=== PATIENT | male | born 1940 | race Caucasian/White ===

== ENCOUNTER 2022-06-16 08:35 | Inpatient (IN) | payer MEDICARE, OTHER, SELFPAY ==
[2022-06-09 09:00] VITALS: BMI 24.1
[2022-06-16] VITALS (20 sets, daily range): BP systolic 104–144; BP diastolic 51–77; PULSE 70–87; RESP 12–20; TEMP 36–36.4; O2SAT 89–99; BMI 24.1; BMI 25.1
--- NOTE | 2022-06-16 | DI.RAD.S_ITS ---
PROCEDURE: XR LUMBAR SPINE 2-3V INDICATIONS: L4-5, L5-S1 TLIF TECHNIQUE: Two views of the lumbar spine were acquired. COMPARISON: None. FINDINGS: Bones: Three intraoperative fluoroscopic spot images demonstrate bilateral transpedicular screws at L4, L5, and S1. The hardware is intact. There are disc spacers at L4-5 and L5-S1. Lateral views demonstrate appropriate placement of the L5-S1 spacer which appears oblique on the AP view. Normal L4-5 alignment. Soft tissues: Overlying bowel gas pattern is normal. No suspicious soft tissue calcifications. IMPRESSION: 1. Intraoperative fluoroscopy for L4-5 and L5-S1 TLIF. Dictated by: Maegan Parra M.D. on 06/16/2022 at 14:16 Approved by: Maegan Parra M.D. on 06/16/2022 at 14:19
[2022-06-16] MEDS: LACTATED RINGERS 1,000 ML 42 ML IV ×3 (09:00→15:17)
[2022-06-16] MEDS: ACETAMINOPHEN 325 MG TABLET 975 MG PO (09:01)
[2022-06-16] MEDS: GABAPENTIN 300 MG CAPSULE 900 MG PO (09:16)
[2022-06-16 09:21] LABS: COVID19 -Nasal RAPID Negative (Negative)
[2022-06-16] MEDS: ALBUTEROL/IPRATROPIUM 3 ML AMPUL INH ×3 (10:02→19:15)
--- NOTE | 2022-06-16 10:33 | PM.PREOP ---
Pre-operative Note COVID-19 COVID-19 status: Negative Result date/Date tested (Pos, Neg/Pending): 06/15/22 Criteria for continued procedure: Expected advancement of disease process, Possibility delay results in more complex future surgery or treatment, Increased loss of function, Continuing or worsening of significant or severe pain, Deterioration of the patient's condition or overall health and Delay expected to result in less-positive ultimate med/surg outcome Interval Note History & Physical reviewed/Exam performed by Physician: Yes Changes to H&P: No
[2022-06-16] MEDS: CEFAZOLIN 2 GM/100 ML PREMIX 100 ML IV ×2 (11:41→20:44)
--- NOTE | 2022-06-16 11:55 | SUR.OPER ---
Prone on spine table, head in foam head support, padded chest and pelvic supports, gel pad at knees, lower legs supported by pillows; nipples, genitalia and toes free of pressure, arms secured on foam padded arm boards at <90 degrees abduction. Tape over blanket at thigh secured to table.
[2022-06-16] MEDS: BUPIVACAINE LIPOSOME 266 MG/20 ML VIAL INJ (11:59)
[2022-06-16] MEDS: BUPIVACAINE 0.25% (PF) 30 ML, EPINEPHrine 0.3 MG INJ (11:59)
--- NOTE | 2022-06-16 14:24 | P.OP_ITS ---
Operative Date/Time/Diagnoses Date of procedure: 06/16/22 Time of procedure: 11:30 Pre-op diagnosis: 1. L4-5, L5-S1 spinal stenosis with radiculopathy 2. L4-5, L5-S1 spondylosis with radiculopathy Post-op diagnosis: same Procedure & Clinicians Procedure: 1. L4-5, L5-S1 Postero-lateral and posterior interbody fusion 2. L4-5, L5-S1 interbody cage placement. 3. L4-5, L5-S1 decompressive laminectomy with bilateral facetecomies 4. L4-5, L5-S1 Posterior segmental instrumentation 5. [place] of bone marrow from iliac crest 6. Utilization of microsurgical technique and operating microscope 7. Utilization of robotic assisted navigation Same procedure as scheduled: Yes Indications: Patient has been having chronic back pain and worsening lumbar radiculopathy. Patient failed multiple conservative management with worsening pain weakness and numbness in his lower extremity. Patient has been having difficulty performing activity of daily living. After discussing risks benefits of treatment options, patient elected proceed with surgery. Surgeon: Ynes Gama Machine Long Goods Helper: Lela Polanco Click Yes if Unassisted: No Anesthesia Type: General Operative Notes Closure Type: primary Specimen(s): none sent Prosthetic devices, grafts, tissues, transplants, or devices: Globus CREO MIS screws, Rise cages Applied: catheter Estimated Blood Loss (mL): 50 Blood products transfused: none Procedure in detail: Patient was seen in the preoperative area. Risks and benefits of the surgery was discussed with the patient. Informed consent was obtained from the patient and placed in the chart. Surgical site was marked. Patient was taken to the operative room. General anesthesia was administered. Prophylactic antibiotic was given to the patient less than 30 min before the incision was made. Patient was placed into a prone position on the Haim table. Patient's back was then prepped and draped in the sterile fashion. Time-out was performed at this time. After patient was prepped and draped, patient's PSIS was palpated and marked bilaterally. Small 1 cm incision was made over the PSIS for placement of the reference probes. Two trocar was placed into the PSIS 1 on each side. The reference probe was attached to the trocar of the reference apparatus. At this time the C-arm imaging was used to confirm AP and lateral of L4-L5, L5- S1 vertebrae and merged the C-arm imaging using the [employer] robotic navigation system with the CT of the lumbar spine. After successful merging was completed and confirmed, skin marker was used to donaldo out the skin incision using the [employer] robotic arm. Bilateral incision was made at this time. Pre templated trajectory was used and guided using the [employer] robotic navigation system for bilateral L4, L5, S1 pedicle screw placement. This was done by using the robotic arm to guide the high-speed bur to make a cortical entry point. Next a drill was placed also using the robotic arm and guided using the navigation system drilling partially through bilateral L4, L5 and S1 pedicles. Next L4, L5, S1 pedicle screws it was pre templated and measured was placed onto the power road oiling truck driver and inserted into the pedicles bilaterally. After all 6 screws were placed C-arm imaging was taken of both AP and lateral to confirm the placement. Excellent placement of the screws were confirmed and a matched precisely with the pre planned screw placement using the navigation system. MARs retractor was inserted using [employer] guidence. Globus MARS retractors was placed inside the incision and docked onto the L4 and L5 lamina. Using microsurgical technique and operating microscope, a L4, L5 laminectomy and L4-5, L5-S1 facetectomy was performed using a Kerrison rongeur. Patient was found have severe lateral recess and neural foramen stenosis which was fully decompressed after the laminectomy facetectomy. More than 75% of the facets were removed during the process of decompression rendering L4-5, L5-S1 level grossly unstable and required a fusion procedure at the same time. The disc space at L4-5, L5-S1 was identified, and a total diskectomy was performed at L4- 5, L5-S1 level. The endplates were decorticated using a rasp and shaver. The total diskectomy and decortication was performed at L4-5, L5-S1 level in order to to accomplish a L4-5, L5-S1 fusion. The local bone from the laminectomy and facetectomy was saved for local bone grafting. After the total diskectomy and decortication was completed, Trifecta bone graft material was combined with local bone that was harvested earlier. At this time, a separate skin is incision was made over the iliac crest. A Jamshidi needle was inserted into the iliac crest through a separate skin incision. 5 cc of bone marrow aspiration was obtained through the separate skin incision using a Jamshidi needle from the iliac crest. The bone marrow aspiration was combined with local bone and the Trifecta bone grafting material. The bone grafting material was placed into the L4-5, L5-S1 interbody space along with a expandable cage. The cage was expanded to its maximum height using the torque limiting screwdriver. The disc preparation as well as the cage insertion were also performed under navigation guidance. After the cage was placed, AP and lateral C-arm imaging was taken to confirm placement of the cage and excellent position was confirmed. Globus MARS retractor was inserted and docked onto the L4-5, L5-S1 posterolateral gutter on the right side. Using the power drill, posterior- lateral decortication was performed at L4-5, L5-S1 level until bleeding cortical bone was identified. The remaining bone grafting material was placed into the L4-5, L5-S1 posterior lateral gutter he order to accomplish posterolateral fusion at the L4-5, L5-S1 level. At this time the tulips were attached to the L4, L5, S1 pedicle screw shanks. After measuring the length of the rods, they were inserted into the tulips of the pedicle screws and locked in place using locking caps and torque limiting screwdriver bilaterally. Total 6 caps and 2 titanium rods was used in order to complete the posterior instrumentation construct. After all the hardware was placed, and confirmed with AP and lateral C-arm imaging, the wound was then irrigated with sterile normal saline and packed with Ray-Ebn gauze for 3 min to accomplish hemostasis. After the gauze was removed the deep fascia was closed with #1 Vicryl suture. The subcutaneous layer was closed with 2-0 Vicryl. The skin was closed with skin jose. Patient tolerated the procedure well. There were no complications. Neuro monitoring system was used to monitor patient's neurologic status throughout entire procedure. There was no disturbance of the neural monitoring signals throughout the case. The Operation could not have been safely performed without compromising the technical result or length of the procedure, without the assistance of a skilled director surgical. The director surgical was medically necessary for proper positioning, retraction and manipulation of instruments, proper exposure, surgical preparation, and manipulation of tissue. Complications: none Post-operative Condition: stable Disposition: PACU Plan for aftercare: Admit to inpatient hospital
[2022-06-16] MEDS: HYDROMORPHONE 2 MG INJ IV ×4 (14:43→15:16)
[2022-06-16] MEDS: OXYCODONE IR 5 MG TABLET PO ×2 (15:18→15:52)
[2022-06-16] MEDS: hydrOXYzine pamoate 25 MG CAPSULE PO ×2 (15:18→20:44)
[2022-06-16] MEDS: HYDROMORPHONE 0.5 MG INJ IV (17:21)
[2022-06-16] MEDS: LACTATED RINGERS 1,000 ML 125 ML IV (17:22)
[2022-06-16] MEDS: GABAPENTIN 100 MG CAPSULE PO (20:44)
[2022-06-16] MEDS: GABAPENTIN 400 MG CAPSULE 800 MG PO (20:45)
[2022-06-16] MEDS: SENNOSIDES 8.6 MG TABLET 17.2 MG PO (20:45)
[2022-06-16] MEDS: TAMSULOSIN 0.4 MG CAPSULE PO (20:45)
[2022-06-16] MEDS: DOCUSATE 100 MG CAPSULE PO (20:45)
[2022-06-16] MEDS: ATORVASTATIN 20 MG TABLET PO (20:45)
[2022-06-16] MEDS: OXYCODONE IR 10 MG TABLET PO ×2 (20:45→23:42)
[2022-06-17] VITALS (8 sets, daily range): BP systolic 128–140; BP diastolic 47–63; PULSE 62–84; RESP 17–22; TEMP 36.5–37; O2SAT 93–96
[2022-06-17] MEDS: HYDROMORPHONE 0.5 MG INJ IV ×6 (01:37→23:30)
[2022-06-17] MEDS: LACTATED RINGERS 1,000 ML 125 ML IV (01:38)
[2022-06-17] MEDS: hydrOXYzine pamoate 25 MG CAPSULE PO (04:31)
[2022-06-17] MEDS: CEFAZOLIN 2 GM/100 ML PREMIX 100 ML IV (04:31)
[2022-06-17] MEDS: OXYCODONE IR 10 MG TABLET PO ×5 (04:31→19:57)
[2022-06-17 05:10] LABS: Hematocrit 31.6 % (41-53); Hemoglobin 10.6 g/dL (13.5-17.5)
--- NOTE | 2022-06-17 07:50 | P.PN_ITS ---
Subjective Subjective Date Patient Seen: 06/17/22 Time Patient Seen: 07:50 Interval history: Patient is complaining of moderate to severe low back pain this morning. He has not mobilized yet and is concerned about this and pain management. He is not worked with physical therapy or occupational therapy yet. He still has a catheter in place. He has longstanding neuropathy and takes gabapentin daily. Exam Vital Signs (past 8 hours): - 06/16/22 23:52 06/17/22 00:00 06/17/22 04:00 Temperature 97.7 F 98.4 F Pulse Rate 64 62 Respiratory Rate 17 18 Blood Pressure 128/56 L 140/63 Pulse Oximetry 93 96 94 Oxygen Delivery Method Nasal Cannula Oxygen Flow Rate 3 3 2 Fraction of Inspired Oxygen 32 SaO2/FiO2 Ratio 296 Oxygen Delivery Method Nasal Cannula Oxygen Flow Rate 2 Narrative Exam Narrative: Pleasant 81-year-old male, resting comfortably in bed, no acute distress. Lumbar dressing demonstrates some bloody discharge. No surrounding erythema, induration, or gian pus. Bilateral lower extremity: Motor functions are g rossly intact, sensation is grossly intact to light touch, calves are soft and nontender to palpation. Objective Labs 06/17/22 04:25 Labs: Laboratory Results - last 24 hr 06/16/22 06/17/22 08:45 04:25 Hgb 10.6 L Hct 31.6 L SARS-CoV-2 (PCR) Negative [facility] Medical History Arthritis CAD (coronary artery disease) COPD (chronic obstructive pulmonary disease) Dry skin Emphysema lung Enlarged prostate Hearing impaired History of angina (2001) History of headache HLD (hyperlipidemia) HTN (hypertension) Myocardial infarction (05/2001) Neuropathy Shortness of breath Spinal stenosis Surgical History H/O vasectomy Hx of heart artery stent (05/2001) Hx of tonsillectomy S/P PTCA (percutaneous transluminal coronary angioplasty) Social History household members: spouse Smoking Status: Former smoker alcohol intake: former Assessment & Plan Post-op Postoperative Procedures: Procedures Operation Date: 06/16/22 10:15 Actual Procedure Side Surgeon p L4-5, L5 -S1 TLIF w. posterior instrumentation-robot Ynes Gama MD Postoperative day: 1 Postoperative status: marginal pain control Postoperative status narrative: -stable status post L4-5, L5-S1 TLIF Postoperative plan narrative: -mobilize with Physical therapy/Occupational therapy. Weightbearing as tolerated with front wheel walker or cane. No bending, lifting, twisting x6 weeks -continue with multimodal pain management. I will change Tylenol scheduled encouraged him to stick with p.o. pain medications -DC urinary catheter once mobilizing well -disposition: Home in 1-2 days with family, once cleared by PT/OT Quality VTE Deep Vein Thrombosis/Pulmonary Embolism Present on Admission: No
[2022-06-17] MEDS: GABAPENTIN 400 MG CAPSULE 800 MG PO ×2 (08:37→20:04)
[2022-06-17] MEDS: TAMSULOSIN 0.4 MG CAPSULE PO ×2 (08:37→20:05)
[2022-06-17] MEDS: GABAPENTIN 100 MG CAPSULE PO ×2 (08:37→20:04)
[2022-06-17] MEDS: DOCUSATE 100 MG CAPSULE PO ×2 (08:37→20:04)
[2022-06-17] MEDS: ACETAMINOPHEN 325 MG TABLET 650 MG PO ×3 (08:38→20:32)
[2022-06-17] MEDS: ALBUTEROL/IPRATROPIUM 3 ML AMPUL INH ×2 (08:46→20:14)
--- NOTE | 2022-06-17 09:10 | PC.NURSE ---
Addendum entered by Priscilla Gill R.N. 06/17/22 14:03: Patient given iv dilaudid earlier for discomfort. He is taking a nap and doesnt want to be bothered for a bit. Will give him his tylenol in an hour. Original Note: Assess- Patient is alert and oriented x4. He states that his back pain is 8/10. Patients gabapentin and oxycodone given at 0830 so that he can work with physical therapy at 0900. Dressing is cdi, with small amount of drainage. He ate well at breakfast. CMS wnl and ppx2. Patient does have neuropathy but this is his baseline. Had a breathing tx before physical therapy.
--- NOTE | 2022-06-17 09:11 | CM.DANOTE ---
Addendum entered by Carole Leiva R.N. 06/17/22 15:15: Went back to meet with patient and spouse, Kinjal. Asked patient if he wants home versus skilled rehab. Patient stated, no, I want home, but I don't think that I will be ready to go tomorrow. Let him know that this will depend upon ortho, if he feels that patient is medically stable, and has worked with P.T, likely he may be ready tomorrow. Did bring in Medicare Choice list ipad, and gave spouse the list of home health agencies. She would like to discuss with her children, and can let this DC inventory planner know which agency she chooses tomorrow. Will go ahead and start face to face. Original Note: DCP: Case received, EMR reviewed and met with patient. Introduced self and role. Was able to obtain information regarding patient's baseline activity level at home prior to his surgery. DCP assessment completed with information currently available. Patient is an 81 year old male who admitted yesterday morning to the care of the orthopedic team. PCP: BENEDICTO Bose. Payer: confirmed: Medicare/[employer] Preferred. Patient came to the hospital for a surgical procedure. Patient had L4-5, L5-S1 postero-lateral and posterior interbody fusion. Patient has history of spinal stenosis. Met with patient in his room. He was sitting up in bed, just had his breakfast. Confirmed that he resides in [facility] with his spouse, Mandy. At his baseline, he indicated that he has been driving, does not use any DME, states, it has been hard to get around before his surgery. He also indicated that he has several stairs in the house. Patient indicated that his spouse should be able to help him, but hasn't been up yet, and doesn't know how he will do with the pain. Patient will be working with the therapy team today. P: DCP to follow closely. Will see how he does with P.T, and will follow up with patient again later today, should he need skilled versus home health. Carole Leiva RN/Dye Tub Tender Discharge Planning/Care Management CM Discharge Assessment Start: 06/17/22 09:08 Freq: Status: Active Protocol: Document 06/17/22 09:09 (Rec[facility] 06[facility]17[facility]22 09[facility]11 [id number] Discharge Planning Assessment Assigned Vision Mixer Carole Leiva RN/Dye Tub Tender Advance Directives? Yes Advance Directives on File No History Provided By Patient,Medical Record Prior Living Arrangements House Household Members spouse Type of transporation used prior to Drives own vehicle admit Independent with ADL's Yes Is patient alert and oriented? Yes Caregiver for Another No Comment Has not been up out of bed due to pain, will have to see how he mobilizes with therapy. Transportation Arrangement Spouse, or facility if he needs alf Referrals Initiated Other Additional Comment Have not yet initiated referrals as of yet, will see how he does with therapy. Whiteboard Updated in Patient Room with Yes name and ext. # of Vision Mixer Review Status In Process Next Review Type Continued Stay Review Pre-Anesthesia Assessment Start: 06/09/22 08:37 Freq: Status: Active Protocol: Document 06/09/22 09:00 [facility] (Rec: 06/09/22 09:34 [facility] [id number]) Pre-Anesthesia Assessment Preferred Name Amarjit Patient Information Reviewed Via Phone Assessment Assessment Completed With Patient Diagnostic Results BMP/CMP,CBC,EKG Comment Outside lans/EKG scanned Primary Care Provider Luisa Degroot Seen Specialist in Last 12 Months Yes Specialist Seen Orthopedist Primary Language Montserratian Cell Cleaner Required No Height 5 ft 8 in Weight 159 lb Body Mass Index (BMI) 24.1 Hearing Ability Hearing Impaired Visual Assist Glasses Dentition Type Full- Upper & Lower Barriers to Learning None Hx Anesthesia Reactions No Hx Family Anesthesia Reaction No Hx Malignant Hyperthermia No Hx Blood Transfusions No Anesthesia Review Requested No Sales Support Technician No alcohol intake former Smoking Status Former smoker how long ago did patient quit smoking Quit 2001 Substance Use Type does not use Pain Present Pain Reported Musculoskeletal Symptoms Abnormal Gait,Back Pain, Difficulty Walking,Neck Pain, Radiating Pain into Limb History of Falling (Recent or History of No ) Patient is completely paralyzed or No completely immobile Mental Status Oriented to own ability Is patient on oxygen? No Does patient have JACKSON/SOB Yes: Hx COPD Hx Sleep Apnea No Currently Taking a Beta Xander No Can You Climb a Flight of Stairs Without No SOB Hx Chest Pain Yes: Hx of angina w/DC 2001, nothing since Hx SOB Yes Hx Syncope or Dizziness No Anti-Coagulant Therapy No Has a Practice Performance Manager No Cardiac Testing No Hx Pacemaker/ICD No Pacemaker Rep Required? No Cardiac Clearance Received Not Applicable Diet Type At Home Regular Dysphagia No Gastrointestinal Symptoms Constipation Genitourinary Symptoms Change in Urinary Stream Bladder Pattern Frequency,Retention,Urgency Urinary Catheter Present No Hx Urinary Self Catheterization No Diabetes No HgbA1C 6.0 Date 03/24/22 Hx Drug Resistant Organism No Presence of External or Internal Medical Yes: Cardiac stent Devices Have you had any close contact with No someone diagnosed with COVID-19? Received a COVID vaccine? Yes Received all doses? Yes Marital Status Lives With spouse Current Living Arrangements House Number of Floors (Floors) 3 or More Floors Support System Spouse Does the Patient Have Assistance After Yes Surgery Patient Discharge Plan Description Return Home Comment Pt advised 2-3 day length of stay per surgeon Feels Safe in Current Environment Yes Been Physically Hurt or Threatened By a No Person in Current Environment Do you have thoughts of harming yourself None or others? Are you currently considering suicide? No Do you have a plan to hurt yourself or No Plan others? Do You Have Any Spiritual Beliefs That No May Affect Your HC Choices? Do You Have Any Cultural Practices That No May Affect Your HC Choices? Comment Sabianist Who Can We Speak to About Patient's Care Family, friends Identifying Code for Release of Patient Declines to issue Information Health Care Proxy/Next of Kin Mandy () Health Care Proxy or [phone] Emergency Contact Name Alonzo (son) Lynette (daughter) Emergency Contact Phone Number Alonzo: [phone] Lynette: Pt to update dos Advance Directives? Yes Advance Directives on File No Requested Patient Bring Advanced Yes Directives DOS Power of Fixed Income Director Yes Power of Fixed Income Director Name Mandy () Power of Fixed Income Director or [phone] PAC Instructions Durable medical equipment, Medications to take/avoid, Nasal antibiotic,No ETOH/ petroleum product on skin DOS, NPO,Post-op transportation,Pre -surgical wash,Sensory aids, Sturdy shoes/comfortable clothes,Do not bring valuables and remove jewelry
--- NOTE | 2022-06-17 09:47 | PT.IIE ---
Current Diagnoses Emphysema, unspecified (06/16/22) Chronic obstructive pulmonary disease, unspecified (06/16/22) Spondylolisthesis, lumbar region (06/16/22) Spinal stenosis, lumbar region with neurogenic claudication (06/16/22) Surgery Performed Operation Date: 06/16/22 10:15 Actual Procedures p L4-5, L5 -S1 TLIF w. posterior instrumentation-robot - Ynes Gama MD Surgical History (Last Reviewed 06/17/22 @ 07:51 by Anna Bennett PA-C) H/O vasectomy Hx of heart artery stent (05/2001) Hx of tonsillectomy S/P PTCA (percutaneous transluminal coronary angioplasty) Medical History (Last Reviewed 06/17/22 @ 07:51 by Anna Bennett PA-C) Arthritis CAD (coronary artery disease) COPD (chronic obstructive pulmonary disease) Dry skin Emphysema lung Enlarged prostate Hearing impaired History of angina (2001) History of headache HLD (hyperlipidemia) HTN (hypertension) Myocardial infarction (05/2001) Neuropathy Shortness of breath Spinal stenosis Physical Therapy Inpatient Evaluation/Re-Eval M1 PT/OT-IP Prior Functional Status Start: 06/17/22 08:08 Freq: NEEDED Status: Active Protocol: Document 06/17/22 09:33 [facility] (Rec: 06/17/22 09:47 [facility] [id number]) Medical Review Prior Functional Status Medical History Reviewed Yes Diet/Fluid Consistency Regular Communication [place], otherwise no difficulty Mobility and Gait indep, has cane and walker. Used cane Activities of Daily Living and IADL's modified independent, painful Social History Household Members spouse Living Arrangements House Number of Floors (Floors) 3 or More Floors Number of Stairs To Enter/Railing? 2, railing Home Environment High Toilet,Walk in Shower Home Equipment Front Wheel Walker,Straight Cane M2 PT-IP Current Condition Start: 06/17/22 08:08 Freq: NEEDED Status: Active Protocol: Document 06/17/22 09:33 [facility] (Rec: 06/17/22 09:47 [facility] [id number]) Physical Therapy Current Condition Current Condition Evaluation Date 06/17/22 Treatment Diagnosis s/p lumbar surgery Onset Date 06/16/22 M3 PT-IP Subjective Start: 06/17/22 08:08 Freq: NEEDED Status: Active Protocol: Document 06/17/22 09:33 [facility] (Rec: 06/17/22 09:47 [facility] [id number]) Subjective Physical Therapy Visit Type Type Initial Evaluation Visit Start Time 09:10 Visit Stop Time 09:35 Total Visit Minutes 25 Number of SUEDING MACHINE TENDER Visits 0 Physical Therapy Visit Comments Patient Comments Reports pain 8.5-9/10, anxious about trying to get OOB Therapy Pain Assessment Pain When Pain Assessed At Rest Pain Present Pain Present Pain Reported Location LOWER BACK Intensity 9 Description Aching,Burning,Tightness Pain Management Techniques Apply Cold,Timing of Activity with Medications M4 PT-IP Mobility and Gait Start: 06/17/22 08:08 Freq: NEEDED Status: Active Protocol: Document 06/17/22 09:33 [facility] (Rec: 06/17/22 09:47 [facility] [id number]) PT-Bed Mobility Assessment Rolling Type of Rolling Log Rolling Level of Assist Minimal Assistance Scooting Scooting to Edge of Bed Standby Assistance PT-Transfer Assessment Sit to and From Stand Sit to and from Stand Contact Guard Assistance Equipment Transfer Assistive Device Gait Belt,Front Wheeled Walker Orthotic/Prosthetic Devices or Brace: No Transfers Transfer Destination Bed Transfer Technique stand with FWW Transfer Ability Level of Assist Contact Guard Assistance Gait Assessment Gait Gait Assistance Required: Contact Guard Assist Distance (Feet) 10 Able to Maintain Weight Bearing Status Yes During Gait Assistive Devices Assistive Device Gait Belt,Front Wheeled Walker Orthotic/Prosthetic Devices or Brace: No Gait Deviations General Gait Pattern Decreased Stride Length, Decreased Feet Clearance, Flexed Trunk Factors Limiting Gait Function Factors Limiting Gait Function Decreased Activity Tolerance, Pain,Respiratory Distress PT-Balance Assessment Sitting Balance and Reactions Static Sitting Balance Ability Good Dynamic Sitting Balance Ability Good Standing Balance and Reactions Static Standing Balance Ability Good Dynamic Standing Balance Ability Fair M5 PT-IP Objective Assessments Start: 06/17/22 08:08 Freq: NEEDED Status: Active Protocol: Document 06/17/22 09:33 [facility] (Rec: 06/17/22 09:47 [facility] [id number]) Orientation Orientation/Cognition Level of Alertness Alert Orientation Name,Day of Week,Situation Safety Awareness Decreased Safety Awareness Memory Description No Deficits Noted Gross Range of Motion Upper Extremity ROM Assessment Within Functional Limits Lower Extremity ROM Assessment Within Functional Limits Strength Upper Extremity Strength Assessment Within Functional Limits Lower Extremity Strength Assessment Within Functional Limits Sensation Assessment Sensation Gross Sensation WNL M6 PT-IP Treatment Start: 06/17/22 08:08 Freq: NEEDED Status: Active Protocol: Document 06/17/22 09:33 [facility] (Rec: 06/17/22 09:47 [facility] [id number]) Physical Therapy Treatment Education Education Provided Precautions Other Treatments Other Treatment Performed REview post-op precautions M7 PT-IP Assessment and Plan Start: 06/17/22 08:08 Freq: NEEDED Status: Active Protocol: Document 06/17/22 09:33 [facility] (Rec: 06/17/22 09:47 [facility] [id number]) PT Summary Assessment and Plan Potential Rehabilitation Potential Good Status of Condition at Evaluation Evolving Summary Impairments Pain,Bed Mobility,Transfers, Gait,Activity Tolerance Assessment Summary Patient post-op lumbar surgery with mobility limitations due to high pain level, respiratory distress, anxiety. Pain level 8/5-9/10 with premedication. O2 sats 92% on 3L O2 per [place]. Cues for deep breathing, guided through log roll with CGA. Gait from bed toward window then back to chair, denied increase in pain . Ice pack provided for lumbar spine x 10 min following treatment for pain managment. Nrsg to remove. Goals Bed Mobility Goal Standby Assistance Transfer Goal Standby Assistance Gait Goal Standby Assistance Gait Distance 125 Days to Meet Goals 4 Frequency of Treatment Frequency Of Treatment Twice a Day Treatment Plan Physical Therapy Treatment Plan Bed Mobility Training,Transfer Training,Gait Training,Hot or Cold Pack Precautions Lumbar Precautions Log Roll,No Twisting,Limit Bending,Lifting Restriction of 10 lbs,Gait Belt above Incisional Area Recommendations To Nursing Amount of Assist Needed 1 Person Assist Discharge Recommendations PT Discharge Recommendations Home with Assistance Transportation Needs at Discharge Private Vehicle
--- NOTE | 2022-06-17 13:04 | OT.IP.EVAL ---
Current Diagnoses Emphysema, unspecified (06/16/22) Chronic obstructive pulmonary disease, unspecified (06/16/22) Spondylolisthesis, lumbar region (06/16/22) Spinal stenosis, lumbar region with neurogenic claudication (06/16/22) Surgery Performed Operation Date: 06/16/22 10:15 Actual Procedures p L4-5, L5 -S1 TLIF w. posterior instrumentation-robot - Ynes Gama MD Past Medical History (Last Reviewed 06/17/22 @ 07:51 by Anna Bennett PA-C) Arthritis CAD (coronary artery disease) COPD (chronic obstructive pulmonary disease) Dry skin Emphysema lung Enlarged prostate Hearing impaired History of angina (2001) History of headache HLD (hyperlipidemia) HTN (hypertension) Myocardial infarction (05/2001) Neuropathy Shortness of breath Spinal stenosis Surgical History (Last Reviewed 06/17/22 @ 07:51 by Anna Bennett PA-C) H/O vasectomy Hx of heart artery stent (05/2001) Hx of tonsillectomy S/P PTCA (percutaneous transluminal coronary angioplasty) Occupational Therapy Inpatient Evaluation/Re-Eval M1 PT/OT-IP Prior Functional Status Start: 06/17/22 08:08 Freq: NEEDED Status: Active Protocol: Document 06/17/22 13:09 [facility] (Rec: 06/17/22 13:27 [facility] [id number]) Medical Review Prior Functional Status Medical History Reviewed Yes Diet/Fluid Consistency Regular Communication Pt is an effective verbal communicator, [place] Mobility and Gait IND in all mobility Activities of Daily Living and IADL's IND for all ADLs, Pt states increased pain with ADLs recently. Social History Household Members spouse Living Arrangements House Number of Floors (Floors) 3 or More Floors Number of Stairs To Enter/Railing? 2 steps to enter, 1 steps then landing then 1 step no railing. Home Environment High Toilet,Walk in Shower Home Equipment Front Wheel Walker,Straight Cane,Raised Toilet Seat w/ Armrests,Shower Seat without Backrest,Grab Bars In Shower Employment Status Retired Additional Social History Comment Pt has a flat bed but sleeps in a recliner at baseline. M2 OT-IP Current Condition Start: 06/17/22 13:07 Freq: Status: Active Protocol: Document 06/17/22 13:09 [facility] (Rec: 06/17/22 13:27 R [id number]) Occupational Therapy Current Condition Current Condition Evaluation Date 06/17/22 Treatment Diagnosis L4-S1 TLIF Diagnosis Onset Date 06/16/22 Post Operative Precautions Lumbar Precautions Log Roll,No Twisting,Limit Bending,Lifting Restriction of 10 lbs,Gait Belt above Incisional Area M3 OT- IP Subjective and Pain Start: 06/17/22 13:07 Freq: Status: Active Protocol: Document 06/17/22 13:09 [facility] (Rec: 06/17/22 13:27 R [id number]) OT- Subjective Occupational Therapy Visit Type Type Initial Evaluation Visit Start Time 12:34 Visit Stop Time 13:04 Total Visit Minutes 30 Notes Pt's is present throughout session. Polina OT , also present throughout session. OT Pain Assessment Pain When Pain Assessed At Rest Pain Present Pain Present Pain Reported Location LOWER BACK Intensity 8 Scale Used Numeric (0 - 10) Management Techniques Distraction,Modification of Treatment,Re-positioning M4 OT- IP ADL's Start: 06/17/22 13:07 Freq: Status: Active Protocol: Document 06/17/22 13:09 [facility] (Rec: 06/17/22 13:27 R [id number]) OT [id number] General Evaluation Self-Feeding Ability Independent Comments OT Self-Feeding Comments Pt finishing lunch when OT entered. OT ADL-Grooming Comments OT Grooming Comments Not performed OT ADL-Oral Care Comments Oral Care Comments Not performed OT ADL-Dressing Comments OT Dressing Comments Not performed OT ADL-Toileting General Evaluation Toileting Ability Total Assistance Comments OT Toileting Comments Pt has velasquez placed. OT ADL-Bathing Comments OT Bathing Comments Not performed M5 OT- IP IADL's Start: 06/17/22 13:07 Freq: Status: Active Protocol: Document 06/17/22 13:09 [facility] (Rec: 06/17/22 13:27 R [id number]) OT-Instrumental Activities of Daily Living Deficits IADL Deficits Identified No Deficits Home Safety Awareness Awareness of Need for Assistance at Home Good Awareness Ability to Problem Solve Emergency Able to Problem Solve Situations Medication Management Medication Management No Deficits Identified Money Management Money Management No Deficits Identified Meal Preparation Meal Preparation Caregiver Provides Assist Blackener Blackener Caregiver Provides Assist Driving Driving Comments 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 OT- Vision and Hearing OT- Hearing Assessment OT- Hearing Assessment Hearing Impaired OT- Vision Assessment Visual Acuity Glasses All The Time Visual Attentiveness WFL Occular Pursuits WFL Visual Convergence WFL Vision Assessment Comments Pt wears bifocals. M7 OT- IP Mobility and Balance Start: 06/17/22 13:07 Freq: Status: Active Protocol: Document 06/17/22 13:09 [facility] (Rec: 06/17/22 13:27 [facility] [id number]) OT- Bed Mobility Assessment Rolling Type of Rolling Log Rolling,Roll to Left Sit to Supine Sit to Supine Assist Moderate Assistance,1 Person Assistance Scooting Scooting to Edge of Bed Independent OT-Transfer Assessment Sit to and From Stand Sit to and from Stand Contact Guard Assistance Transfers Transfer Ability Contact Guard Assistance Technique Transfer Destination Bed,Chair Transfer Technique Stand Step Pivot Devices Transfer Assistive Devices Gait Belt,Front Wheeled Walker Comments Mobility Comments Pt stating 9/10 pain with sit to stand from chair. Pt agreeable to transfer back to bed d/t pain and defer further OT activities at this time. OT- Balance Assessment Sitting Balance and Reactions Static Sitting Balance Ability Good Dynamic Sitting Balance Ability Fair M8 OT- IP Objective Assessments Start: 06/17/22 13:07 Freq: Status: Active Protocol: Document 06/17/22 13:09 [facility] (Rec: 06/17/22 13:27 CGR [id number]) OT Gross Range of Motion Upper Extremity Range of Motion Assessment Within Functional Limits OT Strength Upper Extremity Strength Assessment Within Functional Limits Comments Strength Comments 4+ to 5/5, throughout. OT- Coordination Assessment Upper Extremity Finger to Nose Test Within Functional Limits Finger Tapping Test Within Functional Limits OT-Muscle Tone Assessment Muscle Tone WNL Yes OT Sensation Assessment Comments Summary Comments Sensation to UE WFL Edema Edema Absent M9 OT- IP Assessment and Plan Start: 06/17/22 13:07 Freq: Status: Active Protocol: Document 06/17/22 13:09 [facility] (Rec: 06/17/22 13:27 CGR [id number]) OT Summary Assessment and Plan Potential Rehabilitation Potential Good Analytic Complexity at Evaluation Low Summary OT Impairments Pain,Balance,Functional Mobility,Grooming,Dressing, Toileting,Bathing,Toilet Transfers,Shower Transfers, Activity Tolerance Progress Towards Goals Slow Progress due to Pain Assessment Summary Pt presents as a low complexity evaluation s/p admit for L4-S1 TLIF. Pt states 9/10 pain on this date with movement. Pt with limited participation with OT activities today d/t pain. Pt demonstrates intention tremors that appear to be undiagnosed at this time with an onset of ~6 months ago. Pt transferred with CGA but need mod a for bed mobility. Pt is likely to progress to be a safe discharge to home with family support but if discharged today pt would benefit from SNF. Goals Grooming Goal Independent Dressing Goal Independent Toileting Goal Independent Bathing Goal Independent Toilet Transfer Goal Independent Shower Transfer Goal Independent Days to Meet Goals 4 Frequency of Treatment Frequency Of Treatment Once a Day Treatment Plan OT Treatment Plan ADL Training,Functional Mobility,Patient/Family Education,Discharge Planning Other Treatment Recommendations and Next ADLs standing, LB dressing, Treatment Focus shower, back precautions. Discharge Recommendations OT Discharge Recommendations Home vs SNF Other Discharge Recommendations Pt is likely to progress to being a safe discharge home with assist but currently would need SNF if discharged. Transportation Needs at Discharge Private Vehicle
--- NOTE | 2022-06-17 14:21 | PT.IPTN ---
Current Diagnoses Emphysema, unspecified (06/16/22) Chronic obstructive pulmonary disease, unspecified (06/16/22) Spondylolisthesis, lumbar region (06/16/22) Spinal stenosis, lumbar region with neurogenic claudication (06/16/22) Surgery Performed Operation Date: 06/16/22 10:15 Actual Procedures p L4-5, L5 -S1 TLIF w. posterior instrumentation-robot - Ynes Gama MD Physical Therapy Treatment Note M2 PT-IP Current Condition Start: 06/17/22 08:08 Freq: NEEDED Status: Active Protocol: Document 06/17/22 09:33 [facility] (Rec: 06/17/22 09:47 [facility] [id number]) Physical Therapy Current Condition Current Condition Evaluation Date 06/17/22 Treatment Diagnosis s/p lumbar surgery Onset Date 06/16/22 M3 PT-IP Subjective Start: 06/17/22 08:08 Freq: NEEDED Status: Active Protocol: Document 06/17/22 13:57 [facility] (Rec: 06/17/22 14:41 [facility] [id number]) Subjective Physical Therapy Visit Type Type Treatment Note Visit Start Time 13:57 Visit Stop Time 14:21 Total Visit Minutes 24 Number of MACHINE FEED OPERATOR Visits 1 Physical Therapy Visit Comments Patient Comments Pt c/o 9/10 pain. Therapy Pain Assessment Pain When Pain Assessed During Mobility Pain Present Pain Present Pain Reported Location LOWER BACK Intensity 9 Scale Used Numeric (0 - 10) Pain Management Techniques Modification of Treatment,Re- positioning,Timing of Activity with Medications M4 PT-IP Mobility and Gait Start: 06/17/22 08:08 Freq: NEEDED Status: Active Protocol: Document 06/17/22 13:57 [facility] (Rec: 06/17/22 14:41 [facility] [id number]) PT-Bed Mobility Assessment Rolling Type of Rolling Log Rolling,Roll to Right Level of Assist Contact Guard Assistance Supine to Sit Supine to Sit Contact Guard Assistance,1 Person Assistance Sit to Supine Sit to Supine Minimal Assistance,1 Person Assistance Scooting Scooting to Edge of Bed Standby Assistance PT-Transfer Assessment Sit to and From Stand Sit to and from Stand Contact Guard Assistance Equipment Transfer Assistive Device Gait Belt,Front Wheeled Walker Orthotic/Prosthetic Devices or Brace: No Transfers Transfer Destination Bed Transfer Technique ambulated with FWW Transfer Ability Level of Assist Contact Guard Assistance Comments Mobility Comments Pt in bed upon arrival, c/o fatigue and high level of pain but agreeable to working with therapy. Required cues for proper logroll and CGA for sup <>sit and scooting EOB. Pt CGA for sit<>stand w/ FWW. He ambulated ~20 ft w/ FWW and took standing rest break, O2 91% on 3L. Pt ambulated additional 40 ft w/ FWW before returning to bed. Min A for sit<>sup. Pt left in bed w/ all needs in reach. Gait Assessment Gait Gait Assistance Required: Contact Guard Assist Distance (Feet) 70 Able to Maintain Weight Bearing Status Yes During Gait Assistive Devices Assistive Device Gait Belt,Front Wheeled Walker Orthotic/Prosthetic Devices or Brace: No Gait Deviations General Gait Pattern Decreased Stride Length, Decreased Feet Clearance, Flexed Trunk Factors Limiting Gait Function Factors Limiting Gait Function Decreased Activity Tolerance, Pain,Respiratory Distress Comments Gait Comments decreased stride, minimal foot clearance. Encouraged heel toe walking. Stair Climbing Assessment Comments Stair Climbing Comments Did not assess, will need to complete 2 steps prior to d/c. PT-Balance Assessment Sitting Balance and Reactions Static Sitting Balance Ability Good Dynamic Sitting Balance Ability Good Standing Balance and Reactions Static Standing Balance Ability Good Dynamic Standing Balance Ability Fair M5 PT-IP Objective Assessments Start: 06/17/22 08:08 Freq: NEEDED Status: Active Protocol: Document 06/17/22 09:33 [facility] (Rec: 06/17/22 09:47 [facility] [id number]) Orientation Orientation/Cognition Level of Alertness Alert Orientation Name,Day of Week,Situation Safety Awareness Decreased Safety Awareness Memory Description No Deficits Noted Gross Range of Motion Upper Extremity ROM Assessment Within Functional Limits Lower Extremity ROM Assessment Within Functional Limits Strength Upper Extremity Strength Assessment Within Functional Limits Lower Extremity Strength Assessment Within Functional Limits Sensation Assessment Sensation Gross Sensation WNL M6 PT-IP Treatment Start: 06/17/22 08:08 Freq: NEEDED Status: Active Protocol: Document 06/17/22 13:57 [facility] (Rec: 06/17/22 14:41 [facility] [id number]) Physical Therapy Treatment Education Education Provided Precautions Other Treatments Other Treatment Performed REview post-op precautions M7 PT-IP Assessment and Plan Start: 06/17/22 08:08 Freq: NEEDED Status: Active Protocol: Document 06/17/22 13:57 [facility] (Rec: 06/17/22 14:41 [facility] [id number]) PT Summary Assessment and Plan Potential Rehabilitation Potential Good Summary Impairments Pain,Bed Mobility,Transfers, Gait,Activity Tolerance Progress Towards Goals Slow Progress due to Pain,Slow Progress due to Activity Tolerance Assessment Summary Pt primarily limited by pain but is only requiring CGA to Min A throughout treatment today. Requires cues to perform logroll properly and to adhere to spinal precautions. Increased ambulation distance to 70 ft total. O2 low 90s on 3L during mobility. He will benefit from continued PT, stair training, and caregiver training. Goals Bed Mobility Goal Standby Assistance Transfer Goal Standby Assistance Gait Goal Standby Assistance Gait Distance 125 Days to Meet Goals 4 Frequency of Treatment Frequency Of Treatment Twice a Day Treatment Plan Physical Therapy Treatment Plan Bed Mobility Training,Transfer Training,Gait Training,Hot or Cold Pack Precautions Lumbar Precautions Log Roll,No Twisting,Limit Bending,Lifting Restriction of 10 lbs,Gait Belt above Incisional Area Recommendations To Nursing Amount of Assist Needed 1 Person Assist Discharge Recommendations PT Discharge Recommendations Home with Assistance Transportation Needs at Discharge Private Vehicle
[2022-06-17] MEDS: ATORVASTATIN 20 MG TABLET PO (20:04)
[2022-06-17] MEDS: SENNOSIDES 8.6 MG TABLET 17.2 MG PO (20:05)
[2022-06-17] MEDS: SODIUM CHLORIDE 0.9% FLUSH 10 ML IV ×2 (21:17→23:33)
--- NOTE | 2022-06-17 23:51 | PC.NURSE ---
Pt. requested Dilaudid IVP 0.5 mg. Reported the pain pill does not work at all . Will monitor.
[2022-06-18] VITALS (9 sets, daily range): BP systolic 110–131; BP diastolic 44–56; PULSE 66–85; RESP 18–20; TEMP 36.6–37.2; O2SAT 90–97
[2022-06-18] MEDS: OXYCODONE IR 10 MG TABLET PO ×6 (00:57→18:11)
[2022-06-18] MEDS: HYDROMORPHONE 0.5 MG INJ IV ×3 (03:31→20:40)
--- NOTE | 2022-06-18 07:48 | P.PN_ITS ---
Subjective Subjective Date Patient Seen: 06/18/22 Time Patient Seen: 07:30 Interval history: Patient is awake lying in bed this morning complaining of 10/10 pain. He states he had a horrible night and pain was not well-controlled at all. He notes that both oral oxycodone and separately IV Dilaudid both bring his pain down from 10/10 to 8.5/10. He agrees that physical therapy went well yesterday he was able to be up to the edge of the bed and walk with a front wheel walker. However, he states that if his pain level is too high today he is concerned he will not be able to participate with physical therapy as well. Exam Vital Signs (past 8 hours): - 06/18/22 06:09 Temperature 98.2 F Pulse Rate 77 Respiratory Rate 19 Blood Pressure 131/56 L Pulse Oximetry 92 Oxygen Flow Rate 3 Fraction of Inspired Oxygen 32 SaO2/FiO2 Ratio 290 Oxygen Delivery Method Nasal Cannula Oxygen Flow Rate 3 Narrative Exam Narrative: Awake, alert, and oriented. Intraoperative dressing clean, dry, and intact. Strength and sensation intact to bilateral lower extremities. Bilateral calf soft, compressible, nontender with no palpable cords masses. Const General: acute distress Objective Labs 06/17/22 04:25 [facility] Medical History Arthritis CAD (coronary artery disease) COPD (chronic obstructive pulmonary disease) Dry skin Emphysema lung Enlarged prostate Hearing impaired History of angina (2001) History of headache HLD (hyperlipidemia) HTN (hypertension) Myocardial infarction (05/2001) Neuropathy Shortness of breath Spinal stenosis Surgical History H/O vasectomy Hx of heart artery stent (05/2001) Hx of tonsillectomy S/P PTCA (percutaneous transluminal coronary angioplasty) Social History household members: spouse Smoking Status: Former smoker alcohol intake: former Assessment & Plan Post-op Postoperative Procedures: Procedures Operation Date: 06/16/22 10:15 Actual Procedure Side Surgeon p L4-5, L5 -S1 TLIF w. posterior instrumentation-robot Ynes Gama MD Postoperative day: 2 Postoperative status: marginal pain control Postoperative status narrative: Postoperative course complicated by marginal pain control. Will continue to strive for adequate pain control as inpatient and determine most appropriate outpatient pain management regimen. Postoperative plan narrative: Plan to work with physical therapy today. PT plan to try managing stairs before cleared for discharge. Patient also on 3 L of oxygen with history of COPD. He is not on oxygen at home. We will trial tapering O2 today and monitor O2 saturation. Quality VTE Deep Vein Thrombosis/Pulmonary Embolism Present on Admission: No
--- NOTE | 2022-06-18 08:21 | PC.NURSE ---
Addendum entered by Priscilla Gill R.N. 06/18/22 10:11: Patient repositioned to his r.side and given 10mg of oxycodone. is in room and patient will be working with physical therapy soon. Original Note: Patient upset this morning, stating that he is in pain, not able to move, and needs something now! PA in talking to patient at this time. Given 0.5mg of iv dilaudid and patient calmed down. He is eating breakfast now and will get his other morning meds. His dressing to lower back is cdi with shadow drainage. He is comfortable after being repositioned. CMS wnl and ppx2. Patient denies numbness or tingling at this time
[2022-06-18] MEDS: DOCUSATE 100 MG CAPSULE PO ×2 (08:29→20:39)
[2022-06-18] MEDS: ACETAMINOPHEN 325 MG TABLET 650 MG PO ×2 (08:29→20:38)
[2022-06-18] MEDS: TAMSULOSIN 0.4 MG CAPSULE PO ×2 (08:29→20:40)
[2022-06-18] MEDS: GABAPENTIN 400 MG CAPSULE 800 MG PO ×2 (08:29→20:39)
[2022-06-18] MEDS: ALBUTEROL/IPRATROPIUM 3 ML AMPUL INH ×3 (08:35→19:52)
[2022-06-18] MEDS: GABAPENTIN 100 MG CAPSULE PO ×2 (09:13→20:39)
--- NOTE | 2022-06-18 10:34 | CM.DPC ---
Addendum entered by Carole Leiva R.N. 06/18/22 15:37: Chrystal, spouse, has decided on [facility]. Was initially told that patient could not be seen until next Tue, but just received update that they can see patient on Tuesday. Edwige at [facility] has received the referral. Original Note: DCP Cont: Reached out to patient's spouse, Mandy. She was still looking over the home health agencies, she thinks maybe [facility], but has not yet made a decision. She asked if this could be done after discharge, let her know that [facility] can't order after discharge. She will call this [facility] [employer] back by today, or in the am with the decision of agencies. P: DCP to continue to follow. Plan is home with home health, have face to face completed, but pending agency. Patient refuses shelter. Carole Leiva RN/Digital Product Specialist
--- NOTE | 2022-06-18 11:07 | OT.IP.TRT ---
Current Diagnoses Emphysema, unspecified (06/16/22) Chronic obstructive pulmonary disease, unspecified (06/16/22) Spondylolisthesis, lumbar region (06/16/22) Spinal stenosis, lumbar region with neurogenic claudication (06/16/22) Surgery Performed Operation Date: 06/16/22 10:15 Actual Procedures p L4-5, L5 -S1 TLIF w. posterior instrumentation-robot - Ynes Gama MD Occupational Therapy Treatment Note M2 OT-IP Current Condition Start: 06/17/22 13:07 Freq: Status: Active Protocol: Document 06/17/22 13:09 CGR (Rec: 06/17/22 13:27 CGR [id number]) Occupational Therapy Current Condition Current Condition Evaluation Date 06/17/22 Treatment Diagnosis L4-S1 TLIF Diagnosis Onset Date 06/16/22 Post Operative Precautions Lumbar Precautions Log Roll,No Twisting,Limit Bending,Lifting Restriction of 10 lbs,Gait Belt above Incisional Area M3 OT- IP Subjective and Pain Start: 06/17/22 13:07 Freq: Status: Active Protocol: Document 06/18/22 11:50 CGR (Rec: 06/18/22 12:02 CGR [id number]) OT- Subjective Occupational Therapy Visit Type Type Progress Note Visit Start Time 10:41 Visit Stop Time 11:07 Total Visit Minutes 26 Notes Pt is preparing to get back into bed but is agreeable to LB dressing education. OT Pain Assessment Pain When Pain Assessed At Rest Pain Present Pain Present Pain Reported Location LOWER BACK Intensity 10 Scale Used Numeric (0 - 10) Management Techniques Distraction,Modification of Treatment,Re-positioning, Timing of Activity with Medications M4 OT- IP ADL's Start: 06/17/22 13:07 Freq: Status: Active Protocol: Document 06/18/22 11:50 CGR (Rec: 06/18/22 12:02 CGR [id number]) OT OBG-Hqae-Eeasdex Comments OT Self-Feeding Comments not meal time OT ADL-Grooming Comments OT Grooming Comments not performed, pt declined OT ADL-Oral Care Comments Oral Care Comments not performed, pt declined OT ADL-Dressing Comments OT Dressing Comments Pt educated on LB dressing with visual demonstration using fish cutting machine operator and sock aid. Pt declined to perform but states understanding. Educated on options for slip on shoes and where to buy a hip kit. OT ADL-Toileting General Evaluation Toileting Ability Total Assistance Comments OT Toileting Comments pt with velasquez OT ADL-Bathing Comments OT Bathing Comments not performed, pt declined M5 OT- IP IADL's Start: 06/17/22 13:07 Freq: Status: Active Protocol: Document 06/17/22 13:09 CGR (Rec: 06/17/22 13:27 CGR [id number]) OT-Instrumental Activities of Daily Living Deficits IADL Deficits Identified No Deficits Home Safety Awareness Awareness of Need for Assistance at Home Good Awareness Ability to Problem Solve Emergency Able to Problem Solve Situations Medication Management Medication Management No Deficits Identified Money Management Money Management No Deficits Identified Meal Preparation Meal Preparation Caregiver Provides Assist Nursing Staff Development Coordinator Nursing Staff Development Coordinator Caregiver Provides Assist Driving Driving Comments 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 OT- Vision and Hearing OT- Hearing Assessment OT- Hearing Assessment Hearing Impaired OT- Vision Assessment Visual Acuity Glasses All The Time Visual Attentiveness WFL Occular Pursuits WFL Visual Convergence WFL Vision Assessment Comments Pt wears bifocals. M7 OT- IP Mobility and Balance Start: 06/17/22 13:07 Freq: Status: Active Protocol: Document 06/18/22 11:50 CGR (Rec: 06/18/22 12:02 R [id number]) OT- Bed Mobility Assessment Rolling Type of Rolling Log Rolling,Roll to Left Sit to Supine Sit to Supine Assist Moderate Assistance,1 Person Assistance OT-Transfer Assessment Sit to and From Stand Sit to and from Stand Contact Guard Assistance Transfers Transfer Ability Contact Guard Assistance Technique Transfer Destination Bed,Chair Transfer Technique Stand Step Pivot Devices Transfer Assistive Devices Gait Belt,Front Wheeled Walker Comments Mobility Comments Pt requesting to get back to bed. Pt needed CGA with increased pain for sit to stand then transfered to bed with CGA and mod a for sit to supine using log roll technique. OT- Balance Assessment Sitting Balance and Reactions Static Sitting Balance Ability Good Dynamic Sitting Balance Ability Good M8 OT- IP Objective Assessments Start: 06/17/22 13:07 Freq: Status: Active Protocol: Document 06/17/22 13:09 CGR (Rec: 06/17/22 13:27 CGR [id number]) OT Gross Range of Motion Upper Extremity Range of Motion Assessment Within Functional Limits OT Strength Upper Extremity Strength Assessment Within Functional Limits Comments Strength Comments 4+ to 5/5, throughout. OT- Coordination Assessment Upper Extremity Finger to Nose Test Within Functional Limits Finger Tapping Test Within Functional Limits OT-Muscle Tone Assessment Muscle Tone WNL Yes OT Sensation Assessment Comments Summary Comments Sensation to UE WFL Edema Edema Absent M9 OT- IP Assessment and Plan Start: 06/17/22 13:07 Freq: Status: Active Protocol: Document 06/18/22 11:50 CGR (Rec: 06/18/22 12:02 CGR [id number]) OT Summary Assessment and Plan Potential Rehabilitation Potential Good Analytic Complexity at Evaluation Low Summary OT Impairments Pain,Balance,Functional Mobility,Grooming,Dressing, Toileting,Bathing,Toilet Transfers,Shower Transfers, Activity Tolerance Progress Towards Goals Slow Progress due to Pain Assessment Summary Pt presents as a low complexity evaluation s/p admit for L4-S1 TLIF. Pt states 10/10 pain on this date with movement. Pt with limited participation with OT activities today d/t pain. Pt sat in chair for LB dressing demonstration with use of DME but declined to perform. Pt transferred with CGA but need mod a for bed mobility. Pt is likely to progress to be a safe discharge to home with family support but if discharged today pt would benefit from SNF. Pt is refusing SNF and requesting home with family support where he will benefit from home health OT. Goals Grooming Goal Independent Dressing Goal Independent Toileting Goal Independent Bathing Goal Independent Toilet Transfer Goal Independent Shower Transfer Goal Independent Days to Meet Goals 4 Frequency of Treatment Frequency Of Treatment Once a Day Treatment Plan OT Treatment Plan ADL Training,Functional Mobility,Patient/Family Education,Discharge Planning Other Treatment Recommendations and Next ADLs standing, LB dressing, Treatment Focus shower, back precautions. Discharge Recommendations OT Discharge Recommendations Home Health Other Discharge Recommendations Pt is requesting home with home health. Recommend home health OT. Transportation Needs at Discharge Private Vehicle
[2022-06-18] MEDS: hydrOXYzine pamoate 25 MG CAPSULE PO ×2 (12:01→18:11)
--- NOTE | 2022-06-18 14:10 | PT.IPTN ---
Current Diagnoses Emphysema, unspecified (06/16/22) Chronic obstructive pulmonary disease, unspecified (06/16/22) Spondylolisthesis, lumbar region (06/16/22) Spinal stenosis, lumbar region with neurogenic claudication (06/16/22) Surgery Performed Operation Date: 06/16/22 10:15 Actual Procedures p L4-5, L5 -S1 TLIF w. posterior instrumentation-robot - Ynes Gama MD Physical Therapy Treatment Note M2 PT-IP Current Condition Start: 06/17/22 08:08 Freq: NEEDED Status: Active Protocol: Document 06/17/22 09:33 SAK (Rec: 06/17/22 09:47 SAK [id number]) Physical Therapy Current Condition Current Condition Evaluation Date 06/17/22 Treatment Diagnosis s/p lumbar surgery Onset Date 06/16/22 M3 PT-IP Subjective Start: 06/17/22 08:08 Freq: NEEDED Status: Active Protocol: Document 06/18/22 14:47 TS (Rec: 06/18/22 15:17 TS [id number]) Subjective Physical Therapy Visit Type Type Treatment Note Visit Start Time 14:10 Visit Stop Time 14:36 Total Visit Minutes 26 Number of CARBURIZER Visits 3 Physical Therapy Visit Comments Patient Comments Pt reports being on 2L of o2 decreased from 3L this morning , Pt agreeable to PT. Therapy Pain Assessment Pain When Pain Assessed During Mobility Pain Present Pain Present Pain Reported Location LOWER BACK Intensity 10 Scale Used Numeric (0 - 10) Pain Management Techniques Modification of Treatment,Re- positioning,Timing of Activity with Medications M4 PT-IP Mobility and Gait Start: 06/17/22 08:08 Freq: NEEDED Status: Active Protocol: Document 06/18/22 14:47 TS (Rec: 06/18/22 15:17 TS [id number]) PT-Bed Mobility Assessment Sit to Supine Sit to Supine Minimal Assistance,1 Person Assistance Scooting Scooting Up and Down in Bed Moderate Assistance PT-Transfer Assessment Sit to and From Stand Sit to and from Stand Standby Assistance Equipment Transfer Assistive Device Gait Belt,Front Wheeled Walker Orthotic/Prosthetic Devices or Brace: No Transfers Transfer Destination Bed Transfer Technique Stand Step Pivot Transfer Ability Level of Assist Standby Assistance Comments Mobility Comments Pt found resting in bed side chair, family present in room, agreeable to PT session. Pt performed sit to stand x1 SBA, demonstrated good carryover of sequencing. Pt ambulated in room SBA ~25' with increased step length and height from previous session. Pt performed stairs x2 with FWW CGA, no buckling or LOB, required cues for FWW managment and step sequencing. Pt performed stand step pivot transfer from chair to bed SBA. Sit to supine, cue for logroll and She for LEs back into bed. Scooted HOB ModA x2, provided cues for UE placement on handrails and LE assist. Gait Assessment Gait Gait Assistance Required: Standby Assistance Distance (Feet) 25 Able to Maintain Weight Bearing Status Yes During Gait Assistive Devices Assistive Device Gait Belt,Front Wheeled Walker Orthotic/Prosthetic Devices or Brace: No Gait Deviations General Gait Pattern Decreased Stride Length, Decreased Feet Clearance, Flexed Trunk Factors Limiting Gait Function Factors Limiting Gait Function Decreased Activity Tolerance, Pain,Respiratory Distress Comments Gait Comments Pt ambulated in room ~25' SBA with emerging step thru gait, increased step length and height from previous session, no buckling or LOB. Stair Climbing Assessment Evaluation Level of Assist On Stairs Contact Guard Assistance Devices Stair Climbing Assistive Devices Front Wheel Walker Technique/Endurance Stair Climbing Direction Ascend and Descend Stair Climbing Technique Step to Step Number of Steps Climbed 2 Comments Stair Climbing Comments Pt performed stairs x2 with FWW CGA, provided cues for FWW management and steps sequencing, no buckling or LOB . PT-Balance Assessment Sitting Balance and Reactions Static Sitting Balance Ability Good Dynamic Sitting Balance Ability Good Standing Balance and Reactions Static Standing Balance Ability Good Dynamic Standing Balance Ability Fair M5 PT-IP Objective Assessments Start: 06/17/22 08:08 Freq: NEEDED Status: Active Protocol: Document 06/17/22 09:33 SAK (Rec: 06/17/22 09:47 SAK [id number]) Orientation Orientation/Cognition Level of Alertness Alert Orientation Name,Day of Week,Situation Safety Awareness Decreased Safety Awareness Memory Description No Deficits Noted Gross Range of Motion Upper Extremity ROM Assessment Within Functional Limits Lower Extremity ROM Assessment Within Functional Limits Strength Upper Extremity Strength Assessment Within Functional Limits Lower Extremity Strength Assessment Within Functional Limits Sensation Assessment Sensation Gross Sensation WNL M6 PT-IP Treatment Start: 06/17/22 08:08 Freq: NEEDED Status: Active Protocol: Document 06/18/22 10:22 TS (Rec: 06/18/22 10:50 TS [id number]) Physical Therapy Treatment Education Education Provided Precautions Other Treatments Other Treatment Performed Pt recalled 2/3 precautions this session(bending). M7 PT-IP Assessment and Plan Start: 06/17/22 08:08 Freq: NEEDED Status: Active Protocol: Document 06/18/22 14:47 TS (Rec: 06/18/22 15:17 TS [id number]) PT Summary Assessment and Plan Potential Rehabilitation Potential Good Status of Condition at Evaluation Evolving Summary Impairments Pain,Bed Mobility,Transfers, Gait,Activity Tolerance Progress Towards Goals Slow Progress due to Pain,Slow Progress due to Activity Tolerance Assessment Summary Pt progressed stair ambulation x2 CGA with FWW on platform step. He continues to be SBA during ambulation of 25' in room, continues to report pain and shaking in LEs that is limiting his progression. He is on decreased o2 from 3L this morning to 2L at 93% this afternoon, denied dizziness or SOB. PT is recommending return home with spouse and family when medically appropriate. Goals Bed Mobility Goal Standby Assistance Transfer Goal Standby Assistance Gait Goal Standby Assistance Gait Distance 125 Days to Meet Goals 4 Frequency of Treatment Frequency Of Treatment Twice a Day Treatment Plan Physical Therapy Treatment Plan Bed Mobility Training,Transfer Training,Gait Training,Hot or Cold Pack Precautions Lumbar Precautions Log Roll,No Twisting,Limit Bending,Lifting Restriction of 10 lbs,Gait Belt above Incisional Area Recommendations To Nursing Amount of Assist Needed 1 Person Assist Discharge Recommendations PT Discharge Recommendations Home with Assistance Transportation Needs at Discharge Private Vehicle
[2022-06-18] MEDS: ATORVASTATIN 20 MG TABLET PO (20:39)
[2022-06-18] MEDS: SENNOSIDES 8.6 MG TABLET 17.2 MG PO (20:39)
[2022-06-18] MEDS: SODIUM CHLORIDE 0.9% FLUSH 10 ML IV (20:40)
[2022-06-19] MEDS: OXYCODONE IR 10 MG TABLET PO ×5 (00:12→18:05)
[2022-06-19] MEDS: hydrOXYzine pamoate 25 MG CAPSULE PO ×3 (00:12→12:40)
[2022-06-19] MEDS: ACETAMINOPHEN 325 MG TABLET 650 MG PO ×3 (01:54→15:06)
[2022-06-19] MEDS: HYDROMORPHONE 0.5 MG INJ IV ×2 (01:54→08:33)
[2022-06-19] MEDS: SODIUM CHLORIDE 0.9% FLUSH 10 ML IV ×2 (01:55→08:37)
[2022-06-19 02:06] VITALS: BP 104/44; PULSE 62; RESP 17; TEMP 36.8; O2SAT 94
[2022-06-19 07:20] VITALS: BP 133/61; PULSE 67; RESP 20; TEMP 36.5; O2SAT 95
--- NOTE | 2022-06-19 07:25 | PM.DS.1 ---
History of Present Illness History of Present Illness Date Patient Seen: 06/19/22 Time Patient Seen: 07:25 Narrative: Doing better this am. No fever or chills. Discharge Providers Provider Date of admission: 06/16/22 08:35 Discharge Date: 06/19/22 Primary care physician: Luisa Degroot PA-C Consults: 06/16/22 16:12 Consult to Occupational Therapy Evaluate & Treat Comment: Physician Instructions: Evaluate and treat Consult to Physical Therapy Evaluate & Treat Comment: Physician Instructions: Evaluate and Treat 06/18/22 15:39 Consult to Home Health Routine Comment: Reason For Exam: Home Health RN, P.T, O.T. Discharge provider: Agustin Noel PA-C Summary Hospital Course Discharge Diagnosis: 1. L4-5, L5-S1 spinal stenosis with radiculopathy 2. L4-5, L5-S1 spondylosis with radiculopathy Hospital Course: 1. L4-5, L5-S1 Postero-lateral and posterior interbody fusion 2. L4-5, L5-S1 interbody cage placement. 3. L4-5, L5-S1 decompressive laminectomy with bilateral facetecomies 4. L4-5, L5-S1 Posterior segmental instrumentation 5. [place] of bone marrow from iliac crest 6. Utilization of microsurgical technique and operating microscope 7. Utilization of robotic assisted navigation Same procedure as scheduled: Yes Indications: Patient has been having chronic back pain and worsening lumbar radiculopathy. Patient failed multiple conservative management with worsening pain weakness and numbness in his lower extremity.? Patient has been having difficulty performing activity of daily living.? After discussing risks benefits of treatment options, patient elected proceed with surgery. Surgeon: Ynes Gama Sand Cutting Machine Operator: Lela Polanco Click Yes if Unassisted: No Anesthesia Type: General Operative Notes Closure Type: primary Specimen(s): none sent Prosthetic devices, grafts, tissues, transplants, or devices: Globus CREO MIS screws, Rise cages Applied: catheter Estimated Blood Loss (mL): 50 Blood products transfused: none Progresing as expected. Mobilize wih PT. Limit bending, twisting, lifting. DC home today if safe for home. Exam Vital Signs (past 8 hours): - 06/19/22 02:06 Temperature 98.2 F Pulse Rate 62 Respiratory Rate 17 Blood Pressure 104/44 L Pulse Oximetry 94 Oxygen Flow Rate 3 Fraction of Inspired Oxygen 32 SaO2/FiO2 Ratio 290 Oxygen Delivery Method Nasal Cannula Oxygen Flow Rate 3 Narrative Exam Narrative: Dressing CDI. NV status intact bilat. LE. Const General: cooperative and comfortable Orientation: alert Resp Effort & Inspection: normal respiratory effort Objective Labs 06/17/22 04:25 PFSH Medical History Arthritis CAD (coronary artery disease) COPD (chronic obstructive pulmonary disease) Dry skin Emphysema lung Enlarged prostate Hearing impaired History of angina (2001) History of headache HLD (hyperlipidemia) HTN (hypertension) Myocardial infarction (05/2001) Neuropathy Shortness of breath Spinal stenosis Surgical History H/O vasectomy Hx of heart artery stent (05/2001) Hx of tonsillectomy S/P PTCA (percutaneous transluminal coronary angioplasty) Social History household members: spouse Smoking Status: Former smoker alcohol intake: former Discharge Assessment & Plan Assessment and Plan Assessment: Progressing as expected Plan of Treatment: ND home today Discharge Plan Discharge Plan Patient Disposition: Home Health Service Discharge orders & Medications Prescriptions: New acetaminophen 325 mg Tablet 650 mg PO Q6H Qty: 60 0RF docusate sodium 100 mg Capsule 100 mg PO BID Qty: 20 0RF oxycodone 10 mg Tablet 10 mg PO Q3H PRN (Reason: Pain, Severe (7-10)) Qty: 60 0RF hydroxyzine pamoate 25 mg Capsule 25 mg PO Q4HR PRN (Reason: Nausea And Vomiting) Qty: 20 0RF Continued gabapentin 400 mg Capsule 800 mg PO BID simvastatin 40 mg Tablet 40 mg PO BEDTIME tamsulosin 0.4 mg Capsule 0.4 mg PO BID losartan 25 mg Tablet 25 mg PO QPM gabapentin 100 mg Capsule 100 mg PO BID albuterol sulfate [ProAir HFA] 90 mcg/actuation Hfa Aerosol Inhaler 3 puff INHALATION BID Combivent Respimat 20-100 mcg/actuation Mist 1 puff INHALATION BID Rx Instructions: space evenly during waking hours Discontinued hydrocodone-acetaminophen 5-325 mg Tablet 1.5 tab PO DAILY PRN (Reason: Pain) tramadol 50 mg Tablet 50 mg PO DAILY PRN (Reason: Pain) acetaminophen 500 mg Tablet 1,000 mg PO DAILY PRN (Reason: Pain) Excedrin Extra Strength 250-250-65 mg Tablet 1 tab PO DAILY PRN (Reason: Pain) naproxen sodium [Aleve] 220 mg Capsule 220 mg PO DAILY PRN (Reason: Pain) Follow up/Referrals: Ynes Gama MD [Physician] - As previously scheduled (Follow up with Kaley Hirsch PA-C, on 07/02/2022 @ 10:30 am at [facility] in [place].) Luisa Degroot PA-C [Primary Care Provider] - Diet/Activity/Treatments Diet: Diet as Tolerated Activity: No deep bending or twisting at the waist. No lifting more than 10 pounds. Cold/Heat Therapy: Heating pad to low back as needed for pain. Skin/Wound/Dressing Care Report to your healthcare provider any signs of infection, such as:: chills, fever, night sweats, unusual drainage and unusual redness Dressing: May shower. Keep dressing as dry as possible. If dressing becomes wet or dirty inside, may remove and replace with clean, dry gauze. No bathing or otherwise soaking incisions. Do not apply any creams, lotions, or ointments to incisions. Visit Report/Discharge Packet Instructions: DI for Prescription Opioid Use, DI for Transforaminal Lumbar Interbody Fusion Stand Alone Forms: Patient Portal/API, Stroke Signs & Symptoms, Surgery Discharge Discharge Data Primary Care Provider: Luisa Degroot Discharges patient from system. Discharge Date/Time: 06/19/22 18:15 Quality VTE Deep Vein Thrombosis/Pulmonary Embolism Present on Admission: No
[2022-06-19] MEDS: ALBUTEROL/IPRATROPIUM 3 ML AMPUL INH (07:51)
[2022-06-19 07:53] VITALS: PULSE 64; RESP 18; O2SAT 95
[2022-06-19] MEDS: GABAPENTIN 100 MG CAPSULE PO (08:32)
[2022-06-19] MEDS: TAMSULOSIN 0.4 MG CAPSULE PO (08:35)
[2022-06-19] MEDS: GABAPENTIN 400 MG CAPSULE 800 MG PO (08:37)
[2022-06-19] MEDS: DOCUSATE 100 MG CAPSULE PO (08:37)
--- NOTE | 2022-06-19 10:20 | PT.IPTN ---
Current Diagnoses Emphysema, unspecified (06/16/22) Chronic obstructive pulmonary disease, unspecified (06/16/22) Spondylolisthesis, lumbar region (06/16/22) Spinal stenosis, lumbar region with neurogenic claudication (06/16/22) Surgery Performed Operation Date: 06/16/22 10:15 Actual Procedures p L4-5, L5 -S1 TLIF w. posterior instrumentation-robot - Ynes Gama MD Physical Therapy Treatment Note M2 PT-IP Current Condition Start: 06/17/22 08:08 Freq: NEEDED Status: Active Protocol: Document 06/17/22 09:33 SAK (Rec: 06/17/22 09:47 SAK [id number]) Physical Therapy Current Condition Current Condition Evaluation Date 06/17/22 Treatment Diagnosis s/p lumbar surgery Onset Date 06/16/22 M3 PT-IP Subjective Start: 06/17/22 08:08 Freq: NEEDED Status: Active Protocol: Document 06/19/22 11:16 TS (Rec: 06/19/22 11:37 TS [id number]) Subjective Physical Therapy Visit Type Type Treatment Note Visit Start Time 10:20 Visit Stop Time 10:45 Total Visit Minutes 25 Notes Spo2 92% 3L, decreased to 2L 90%. Number of HEAD SWAMPER Visits 4 Physical Therapy Visit Comments Patient Comments Pt reports having increased pain and shakiness this morning. He also reports having catheter removed and having BM. Therapy Pain Assessment Pain When Pain Assessed During Mobility Pain Present Pain Present Pain Reported M4 PT-IP Mobility and Gait Start: 06/17/22 08:08 Freq: NEEDED Status: Active Protocol: Document 06/19/22 11:16 TS (Rec: 06/19/22 11:37 TS [id number]) PT-Transfer Assessment Sit to and From Stand Sit to and from Stand Standby Assistance Equipment Transfer Assistive Device Gait Belt,Front Wheeled Walker Comments Mobility Comments Pt found resting in chair, agreeable to PT session. Sit to stand from chair x1 SBA, demonstrates good carryover of sequencing with weight forward and BUE support from arms of chair. Pt ambulated ~ 30' step to gait SBA, slight flexed posture, no signs of buckling or LOB. Pt performed platform step x2 with FWW SBA, demonstrated good carryover of sequencing from previous session. Pt ambulated back to chair, stand to sit SBA with good carryover of BUE on arms of chair for eccentric control . Pt was left in chair with call light nearby and spouse. Gait Assessment Gait Gait Assistance Required: Standby Assistance Distance (Feet) 30 Able to Maintain Weight Bearing Status Yes During Gait Assistive Devices Assistive Device Gait Belt,Front Wheeled Walker Orthotic/Prosthetic Devices or Brace: No Gait Deviations General Gait Pattern Decreased Stride Length, Decreased Feet Clearance, Flexed Trunk Factors Limiting Gait Function Factors Limiting Gait Function Decreased Activity Tolerance, Pain,Respiratory Distress Comments Gait Comments See mobility comments Stair Climbing Assessment Evaluation Level of Assist On Stairs Standby Assistance Devices Stair Climbing Assistive Devices Front Wheel Walker Technique/Endurance Stair Climbing Direction Ascend and Descend Stair Climbing Technique Step to Step Number of Steps Climbed 2 Comments Stair Climbing Comments See mobility comments. PT-Balance Assessment Sitting Balance and Reactions Static Sitting Balance Ability Good Dynamic Sitting Balance Ability Good Standing Balance and Reactions Static Standing Balance Ability Good Dynamic Standing Balance Ability Fair M5 PT-IP Objective Assessments Start: 06/17/22 08:08 Freq: NEEDED Status: Active Protocol: Document 06/17/22 09:33 SAK (Rec: 06/17/22 09:47 SAK [id number]) Orientation Orientation/Cognition Level of Alertness Alert Orientation Name,Day of Week,Situation Safety Awareness Decreased Safety Awareness Memory Description No Deficits Noted Gross Range of Motion Upper Extremity ROM Assessment Within Functional Limits Lower Extremity ROM Assessment Within Functional Limits Strength Upper Extremity Strength Assessment Within Functional Limits Lower Extremity Strength Assessment Within Functional Limits Sensation Assessment Sensation Gross Sensation WNL M6 PT-IP Treatment Start: 06/17/22 08:08 Freq: NEEDED Status: Active Protocol: Document 06/18/22 10:22 TS (Rec: 06/18/22 10:50 TS [id number]) Physical Therapy Treatment Education Education Provided Precautions Other Treatments Other Treatment Performed Pt recalled 2/3 precautions this session(bending). M7 PT-IP Assessment and Plan Start: 06/17/22 08:08 Freq: NEEDED Status: Active Protocol: Document 06/19/22 11:16 TS (Rec: 06/19/22 11:37 TS [id number]) PT Summary Assessment and Plan Potential Rehabilitation Potential Good Status of Condition at Evaluation Evolving Summary Impairments Pain,Bed Mobility,Transfers, Gait,Activity Tolerance Progress Towards Goals Slow Progress due to Pain,Slow Progress due to Activity Tolerance Assessment Summary Pt progressed stairs x2 on platform step with FWW to SBA this session. He continues to be SBA for sit to stands and ambulation. Pt is having difficulty with pain management and is limiting his mobility. Pt's spouse expresses concerns about not being able to provide assist he needs at home if there was a decline in his mobility, would like to check into potential SNF rehab for a few days to help improve his mobility to more independently before return home, currently he is SBA for all mobility. Pt does have daughter and son that could be with him a few days after d/c but exact timeline is unknown. PT is recommending SNF vs Home with HHPT. Based off of pt needing increase in pain meds this morning and increase in shakes family is concerned about him going home. Pt could benefit from SNF rehab to improve bed mobility, transfers and gait. Goals Bed Mobility Goal Standby Assistance Transfer Goal Standby Assistance Gait Goal Standby Assistance Gait Distance 125 Days to Meet Goals 4 Frequency of Treatment Frequency Of Treatment Twice a Day Treatment Plan Physical Therapy Treatment Plan Bed Mobility Training,Transfer Training,Gait Training,Hot or Cold Pack Precautions Lumbar Precautions Log Roll,No Twisting,Limit Bending,Lifting Restriction of 10 lbs,Gait Belt above Incisional Area Recommendations To Nursing Amount of Assist Needed Standby Assistance,1 Person Assist Discharge Recommendations PT Discharge Recommendations Home vs SNF Other Discharge Recommendations HHPT Transportation Needs at Discharge Private Vehicle
--- NOTE | 2022-06-19 10:33 | CM.DPC ---
Addendum entered by STANLEY Benítez 06/19/22 11:23: ADD: Per WILDLIFE TECHNICIAN, pt just ambulated SBA and pain is managed now and recommending home with family and HH. Per WILDLIFE TECHNICIAN, family has some concerns about pain control at home. SW met bedside with pt, spouse, and adult Dtr and they confirm they feel pt is ambulating fairly well and biggest concern is pain. SW discussed plan A being home with family and [facility] and plan B SNF and discussed since pt had 3 night qualifying stay then if they get home and fail HH then they can still access SNF but would be through SNF facility coordinating with usually PCP or potentially Orthopedic team. Family feels much better knowing they have a safety net and if pt better controlled on orals today they are agreeable with d/c home with [facility] this evening. SW updated RN who is calling Ortho to get script for the oral dilautin for break through pain to see if pt can be discharged this evening. BF Original Note: DCP SNF vs HH planning Per Ortho PA, pt may be medically stable to d/c today pending progress with PT. Per PT, pt with pain management issues today and was just given IV dilaudid and cannot work with pt yet this morning. SW and UR spoke to pt's spouse who is now inquiring about SNF as pt has not made as much progress as anticipated. SNF preference is 1) [facility] as they live right by that facility and if they cannot accept pt and spouse agreeable with [facility] or [facility]. Pt Inpt status as of admit on 06/16/22. SW made referrals to [facility], [facility], [facility] to determine bed availability and if they can accept. PASRR done. If pt make progress then [facility] referral already made and they have pt on their schedule for 06/21/22 and F2F and HH orders already completed. Plan: SW to follow for above SNFs to review to determine if they can accept pt vs home with spouse and [facility]. STANLEY Benítez
[2022-06-19 11:00] VITALS: BP 129/70; PULSE 72; RESP 19; TEMP 36.7; O2SAT 91; O2SAT 96
[2022-06-19] MEDS: HYDROMORPHONE 2 MG TABLET PO (15:13)
[2022-06-19 16:48] VITALS: BP 159/69
[2022-06-19] MEDS: LOSARTAN 25 MG TABLET PO (16:48)
[2022-06-19 19:35] VITALS: O2SAT 97
--- NOTE | 2022-06-19 20:06 | PC.NURSE ---
Addendum entered by Katya Rivas R.N. 06/19/22 20:10: patient and requesting dilauded meds for home. patient felt as though his pain was not being controlled. reported 8/10 low back pain while sitting up in chair. agreeable to take tylenol routine, and about an hour later gave PO dilauded 2mg. reassessed for effectiveness: patient reports its 8/10 asked him to re-evaluate if the pain had decreased at all. it was an 8.5/10 but it came down to an 8/10. request for PRN flexeril was declined. patient d/c w/ the oxy and vistaril already ordered. voided in the bathroom prior to d/c and patient eager to d/c home. Original Note: 1315: assumed care of patient. patient is alert, oriented. voices needs. at bedside are and daughter. patient's velasquez dc'd at 0900 and awaiting first void. urinal is in place, he is sitting in his chair with feet up. changed his position and had him stand at chair to try to urinate. no luck w/ void. reinforced bottom of the spinal incision dressing, as it had lifted up and exposed the bottom of incision. scant dry drainage noted on the dressing. patient did not want to try the ice packs but encouraged him to try them and the tylenol. agreeable to both. tolerated ambulating to the bathroom w/ 1pa. SOB w/ exertion, was able to have several bowel movements. dc was completed by SCOTTY ochoa. see dc portion of chart.
== END 2022-06-19 18:15 | disposition home or self-care (01) | DRG 455 ==
PROVIDERS: Admitting Provider Orthopaedic Surgery Orthopaedic Surgery of the Spine; PCP Physician Assistant; Referring Provider Orthopaedic Surgery Orthopaedic Surgery of the Spine; Visit Provider Orthopaedic Surgery Orthopaedic Surgery of the Spine
PROC: 0SG00AJ Fusion of Lumbar Vertebral Joint with Interbody Fusion Device, Posterior Approach, Anterior Column, Open Approach (ICD-10-PCS; principal; 2022-06-16 10:15)
DX: M48.061 Spinal stenosis, lumbar region without neurogenic claudication (principal); M48.07 Spinal stenosis, lumbosacral region; M47.26 Other spondylosis with radiculopathy, lumbar region; M47.817 Spondylosis without myelopathy or radiculopathy, lumbosacral region; J44.9 Chronic obstructive pulmonary disease, unspecified; N40.0 Benign prostatic hyperplasia without lower urinary tract symptoms; E78.5 Hyperlipidemia, unspecified; I10 Essential (primary) hypertension; Z87.891 Personal history of nicotine dependence; Z20.822 Contact with and (suspected) exposure to COVID-19
CPT/HCPCS: 36415; 72100; 76000; 85014; 85018; 87635; 94640; 94760; 97116; 97161; 97165; 97530; 97535; C9803; A9270; C1713; C1831; C9290; J0171; J0690; J1100; J1170; J2405; J2704; J3010